=== PATIENT | female | born 1940 | race Caucasian/White ===

== ENCOUNTER 2019-05-19 12:23 | Emergency (ER) | payer OTHER ==
[~2019-05-19] VITALS: Ht 160 cm; Wt 76.2 kg
[~2019-05-19 12:23] MED LIST: ALB5IS NEB; ALBU18 IN; DOCU-94 PO; FERR-20 PO; FURO1TAB33 PO; LEV500T PO; METF-370 PO; OMEP20CA74 PO; PRED-188 PO; SIMV10TA84 PO; [UNRECOGNIZED DRUG - CODE] IN
[2019-05-19 12:38] VITALS: BP 109/50
[2019-05-19 13:13] LABS: Basophils # (auto) 0.1 uL; Basophils % (auto) 0.8 % (0.0-2.0); Eosinophils # (auto) 0.1 uL; Eosinophils % (auto) 1.1 % (0.0-7.0); Hematocrit 33.4 % (36.0-46.0); Hemoglobin 10.5 g/dL (12.2-16.2); Lymphocytes # (auto) 1.6 uL; Mean Corpuscular Hemoglobin 25.9 pg (28.0-32.0); Mean Corpuscular Hgb Conc. 31.3 g/dL (32.0-36.0); Mean Corpuscular Volume 82.7 fL (80.0-100.0); Monocytes # (auto) 0.6 uL; Monocytes % (auto) 6.7 % (0.0-12.0); Neutrophils % (auto) 72.4 % (37.0-80.0); Nucleated Red Blood Cells % 0.1 %; Platelet Count (auto) 326 10^3/uL (140-450); Red Blood Cells 4.04 10^6/uL (4.0-5.20); Red Cell Distribution Width 16.4 % (11.8-14.3); White Blood Cell 8.3 10^3/uL (4.4-10.8)
[2019-05-19 13:32] LABS: INR 0.98 (0.9-1.15); Partial Thromboplastin Time 26.9 sec (23.64-32.05)
[2019-05-19 13:36] LABS: Albumin 3.4 g/dL (3.4-5.0); Anion Gap 8 (5-15); Calcium 8.7 mg/dL (8.5-10.1); Carbon Dioxide 26 mmol/L (21-32); Chloride 105 mmol/L (98-107); Glucose 93 mg/dL (74-106); Potassium 3.9 mmol/L (3.5-5.1); Sodium 139 mmol/L (136-145)
[2019-05-19 13:40] LABS: Alanine Aminotransferase 13 U/L (13-56); Aspartate Aminotransferase 11 U/L (15-37); BUN/Creatinine Ratio 15.6; Bilirubin, Total 0.5 mg/dL (0.2-1.0); Blood Urea Nitrogen 14 mg/dL (7-18); GFR African American 78 mL/min; GFR Non-African American 64 mL/min; Total Protein 7.2 g/dL (6.4-8.2)
[2019-05-19 13:43] LABS: Alkaline Phosphatase 78 U/L (45-117)
== END 2019-05-19 15:16 | disposition home or self-care (01) ==
LOC: ER 12:32
DX: I48.91 Unspecified atrial fibrillation (principal); J44.9 Chronic obstructive pulmonary disease, unspecified; E11.9 Type 2 diabetes mellitus without complications; Z90.49 Acquired absence of other specified parts of digestive tract; Z90.710 Acquired absence of both cervix and uterus; Z87.891 Personal history of nicotine dependence; Z88.0 Allergy status to penicillin; Z88.5 Allergy status to narcotic agent; Z88.1 Allergy status to other antibiotic agents; Z79.2 Long term (current) use of antibiotics; Z79.899 Other long term (current) drug therapy
CPT/HCPCS: 36415; 71045; 80053; 84484; 85025; 85610; 85730; 93005

== ENCOUNTER 2022-01-09 16:19 | Emergency (ER) | payer OTHER ==
[~2022-01-09] VITALS: Ht 160 cm; Wt 56.7 kg
[2022-01-09] MEDS ORDERED: SODIUM CHLORIDE 0.9% 500 ML IV ONE (17:30)
[2022-01-09 18:02] LABS: Mean Corpuscular Hemoglobin 25.3 pg (28.0-32.0)
[2022-01-09 18:04] LABS: Hematocrit 27.3 % (36.0-46.0); Hemoglobin 8.6 g/dL (12.2-16.2); Mean Corpuscular Hgb Conc. 31.4 g/dL (32.0-36.0); Mean Corpuscular Volume 80.7 fL (80.0-100.0); Red Blood Cells 3.38 10^6/uL (4.0-5.20); Red Cell Distribution Width 26.4 % (11.8-14.3); White Blood Cell 7.7 10^3/uL (4.4-10.8)
[2022-01-09 18:15] LABS: Basophils % (manual) 0 (0.0-2.0); Blast Cells 0; INR 1.06 (0.9-1.15); Myelocytes % 0; Partial Thromboplastin Time 25.2 sec (23.6-33.0); Promyelocytes % 0; Reactive Lymphocytes 0
[2022-01-09 18:28] LABS: BUN/Creatinine Ratio 28.4; Calcium 8.9 mg/dL (8.5-10.1); Magnesium 1.9 mg/dL (1.6-2.6); Potassium 3.7 mmol/L (3.5-5.1)
[2022-01-09 18:31] LABS: Bilirubin, Total 0.5 mg/dL (0.2-1.0)
[2022-01-09 18:43] LABS: Band Neutrophils % (manual) 4; Eosinophils % (manual) 1 (0-7); Lymphocytes % (manual) 18 (10.0-50.0); Metamyelocytes % 1; Monocytes % (manual) 5 (0-12)
[2022-01-10 04:29] LABS: Urine Bacteria NONE SEEN /hpf (None Seen); Urine Blood 2+ /uL (Negative); Urine Specific Gravity 1.018 (1.001-1.035); Urine WBC 14177 /hpf (0 - 5); Urine WBC Clumps PRESENT /hpf (None Seen)
[2022-01-10 06:22] VITALS: BP 107/48
== END 2022-01-10 06:30 | disposition short-term general hospital (02) ==
LOC: ER 16:19 → EDBD 16:19 → ER 01-10 06:30
DX: R53.1 Weakness (principal); C79.9 Secondary malignant neoplasm of unspecified site; J44.9 Chronic obstructive pulmonary disease, unspecified; E11.9 Type 2 diabetes mellitus without complications; Z90.49 Acquired absence of other specified parts of digestive tract; Z90.710 Acquired absence of both cervix and uterus; Z87.891 Personal history of nicotine dependence; Z88.0 Allergy status to penicillin; Z88.6 Allergy status to analgesic agent; Z88.1 Allergy status to other antibiotic agents; Z20.822 Contact with and (suspected) exposure to COVID-19
CPT/HCPCS: 36415; 71045; 74176; 80053; 81001; 83735; 84484; 85007; 85027; 85610; 85730; 87426; 93005; 96360; 96361; 99285; J7040